=== PATIENT | male | born 1995 | race Caucasian/White ===

== ENCOUNTER 2017-06-08 17:01 | Emergency (ER) | payer BC, OTHER ==
[~2017-06-08] VITALS: Ht 172.7 cm; Wt 84.4 kg
[2017-06-08] MEDS ORDERED: FLUORESCEIN OPHTHALMIC 1 MG STRIP ONE (17:32)
[2017-06-08] MEDS ORDERED: PROPARACAINE OPHTH 0.5%, 15ML ONE (17:33)
[2017-06-08 19:42] VITALS: BP 131/71
== END 2017-06-08 19:44 | disposition home or self-care (01) ==
LOC: ED 19:35
DX: H57.12 Ocular pain, left eye (principal)
CPT/HCPCS: 70200; 99284